=== PATIENT | female | born 1965 | race Caucasian/White ===

== ENCOUNTER 2018-07-27 20:24 | Emergency (ER) | payer MEDICAID ==
[~2018-07-27] VITALS: Ht 152.4 cm; Wt 56.8 kg
[2018-07-27 20:28] VITALS: Ht 152.4 cm; Wt 56.8 kg
--- NOTE | 2018-07-28 00:25 | ERD ---
ER Documentation Chief Complaint Chief Complaint pt reports Lump in LLQ x 2 days HPI This is a 53-year-old female with no significant past medical history who is presenting with several months of intermittent waxing and waning sharp aching colicky left lower quadrant abdominal pain and a reported intermittent mass. The patient reports when the pain is severe, she feels a mass in the left lower quadrant that has been progressively getting larger over the last several months. She was evaluated previously with a reassuring work-up and told to follow-up with a adhesion tester, but she has not followed up since her previous evaluation. The patient reports that the pain currently has improved, but it does still hurt to press on it. She does endorse occasional nausea but no vomiting. She denies constipation or diarrhea. She has not had any black or bloody or tarry stools. She denies dysuria or hematuria or urgency or frequency. The patient does not feel sick. She has not had any fever or chills. The patient denies feeling sick recently. The patient denies fever or chills. The patient has had no headache or vision changes. The patient does not endorse neck or back pain. The patient denies lightheadedness or dizziness. The patient has had no chest pain or trouble breathing. The patient has had no focal deficits. The patient has had no weakness or numbness or tingling to the face or extremities. ROS All systems reviewed and are negative except as per history of present illness. Medications Home Meds Reported Medications Naproxen* (Aleve*) 220 Mg Capsule, 440 MG PO BID, #60 CAP 07/28/18 Allergies Allergies: Coded Allergies: No Known Allergy (Unverified , 07/27/18) PMhx/Soc Medical and Surgical Hx: pt denies Medical Hx, pt denies Surgical Hx History of Surgery: No Hx Neurological Disorder: No Hx Respiratory Disorders: No Hx Cardiac Disorders: No Hx Psychiatric Problems: No Hx Miscellaneous Medical Probl: No Hx Alcohol Use: No Hx Substance Use: No Hx Tobacco Use: No Smoking Status: Never smoker FmHx Family History: No diabetes Physical Exam Vitals Vital Signs Date Temp Pulse Resp B/P (MAP) Pulse Ox O2 O2 Flow FiO2 Time Delivery Rate 07/28/18 55 14 100/55 100 Room Air 01:53 (70) 07/27/18 97.6 83 16 182/79 97 20:28 (113) Physical Exam Const: No apparent distress, well-developed, well-nourished Head: Normocephalic, Atraumatic Eyes: Normal Conjunctiva. Extraocular movements intact. Pupils equal, round and reactive to light ENT: Normal External Ears, Nose and Mouth. Neck: Full range of motion. No meningismus. Resp: Clear to auscultation bilaterally, No wheezes, rales or rhonchi Cardio: Regular rate and rhythm. No murmurs, rubs or gallops Abd: Soft, non distended. Left lower quadrant tenderness to palpation. No guarding or rebound. Normal bowel sounds Skin: No petechiae or rashes Back: No midline tenderness. No CVA tenderness Ext: No cyanosis, or edema Neur: Awake and alert, oriented 4. Cranial nerves intact. No facial droop. Normal strength, sensation and coordination. Psych: Normal Mood and Affect Result Diagram: 07/27/18 2347 07/27/187 Results 24 hrs Laboratory Tests Test 07/27/18 23:40 07/27/18 23:45 07/27/18 23:47 Urine Color RED Urine Clarity SLIGHTLY CLOUDY Urine pH 7.0 Urine Specific Force 1.005 Urine Ketones NEGATIVE mg/dL Urine Nitrite NEGATIVE mg/dL Urine Bilirubin NEGATIVE mg/dL Urine Urobilinogen NEGATIVE mg/dL Urine Leukocyte Esterase TRACE Serena/ul Urine Microscopic RBC 1 /HPF Urine Microscopic WBC 4 /HPF Urine Squamous Epithelial Cells FEW /HPF Urine Bacteria FEW /HPF Urine Hemoglobin NEGATIVE mg/dL Urine Glucose NEGATIVE mg/dL Urine Total Protein NEGATIVE mg/dl POC Beta HCG, Qualitative NEGATIVE White Blood Count 9.1 10^3/ul Red Blood Count 4.11 10^6/ul Hemoglobin 12.1 g/dl Hematocrit 37.0 % Mean Corpuscular Volume 90.0 fl Mean Corpuscular Hemoglobin 29.4 pg Mean Corpuscular 32.7 g/dl Hemoglobin Concent Red Cell Distribution Width 13.0 % Platelet Count 225 10^3/UL Mean Platelet Volume 11.9 fl Immature Granulocytes % 0.200 % Neutrophils % 62.4 % Lymphocytes % 28.2 % Monocytes % 6.4 % Eosinophils % 2.5 % Basophils % 0.3 % Nucleated Red Blood Cells % 0.0 /100WBC Immature Granulocytes # 0.020 10^3/ul Neutrophils # 5.7 10^3/ul Lymphocytes # 2.6 10^3/ul Monocytes # 0.6 10^3/ul Eosinophils # 0.2 10^3/ul Basophils # 0.0 10^3/ul Nucleated Red Blood Cells # 0.0 10^3/ul Sodium Level 142 mmol/L Potassium Level 4.0 mmol/L Chloride Level 109 mmol/L Carbon Dioxide Level 24 mmol/L Anion Gap 9 Blood Urea Nitrogen 11 mg/dl Creatinine 0.62 mg/dl Est Glomerular Filtrat > 60 mL/min Rate mL/min Glucose Level 110 mg/dl Calcium Level 10.6 mg/dl Total Bilirubin 0.2 mg/dl Direct Bilirubin 0.00 mg/dl Indirect Bilirubin 0.2 mg/dl Aspartate Amino 24 IU/L Transf (AST/SGOT) Alanine 15 IU/L Aminotransferase (ALT/SGPT) Alkaline Phosphatase 104 IU/L Total Protein 7.4 g/dl Albumin 4.2 g/dl Globulin 3.20 g/dl Albumin/Globulin Ratio 1.31 Lipase 81 U/L Procedures/MDM MDM The patient's presentation warrants further investigation. Previous medical records, if available, were reviewed. LABS The patient's laboratory testing was obtained and reviewed. No emergent treatment was required unless described below. CBC: No E/o systemic infection or severe anemia or thrombocytopenia Chemistry: No E/o severe acidosis or alkalosis or renal failure or liver disease or diabetic ketoacidosis Lipase: No E/o pancreatitis Urine: No E/o acute infection or hematuria HCG: Negative IMAGING Imaging and Radiology interpretation reviewed. CT Abd/Pelvis FINDINGS: Please note that evaluation of the solid and hollow viscera is limited by lack of IV contrast. Lower thorax: Unremarkable. Liver: Unremarkable. Biliary: There is a large stone in the gallbladder neck, measuring 2.1 cm. Pancreas: Unremarkable. Spleen: Unremarkable. Adrenals: Unremarkable. Kidneys: No retained stone is identified. No hydronephrosis. Bowel: No evidence of obstruction. The appendix is normal. No wall thickening. Pelvic organs: Large mass isodense to the uterus is seen abutting the uterine dome, measuring 11.2 cm cc by 12.1 cm transverse by 8.4 cm AP. The uterus itself is bulbous in morphology, with heterogeneous central internal hypodensity, measuring 3.8 cm in thickness. The left ovary is not clearly visualized. Peritoneum: There is mild free fluid in the pelvis as well as along the inferior left lateral aspect of the pelvic mass discussed above. No free air. Lymph Nodes: No pathologic adenopathy identified. Vessels: Unremarkable. Bones and remaining soft tissues: Round hypodense focus within the right iliacus muscle, measuring 2.2 cm AP by 1.7 cm transverse by 5.7 cm cc. No acute bony abnormality identified. IMPRESSION: Large lower abdominal mass abutting the uterine dome, measuring up to 12.1 cm, with adjacent free fluid. Findings likely represent a large exophytic fibroid. However, the left ovary is not visualized and therefore an ovarian tumor is not excluded. Bulbous morphology to the uterus with possible thickened endometrium or retained blood products in the endometrial canal, measuring 3.8 cm in thickness. Recommend pelvic ultrasound to further evaluate the above findings. Large retained stone in the gallbladder neck, measuring 2.1 cm. Likely complex fluid collection within the right iliacus muscle, which is nonspecific, possibly a proteinaceous cyst or resolving hematoma. Electronically viewed and signed by Physician Thea on 07/28/2018 01:29 US Pelvis FINDINGS: UTERUS: Measures 14.0 x 7.2 x 8.0 cm with 5.6 x 5.3 cm presumed leiomyoma within the fundus/anterior body. 12.0 x 11.4 cm heterogeneous lesion is again seen along the left superior margin of the uterus and left adnexa. ENDOMETRIAL STRIPE: Not well seen. RIGHT OVARY: Measures 4.9 x 2.1 x 3.4 cm without appreciated abnormality. Vascular flow is demonstrated. LEFT OVARY: Not identified. FREE FLUID: None. IMPRESSION: 1. Leiomyomatous uterus with presumed 12.0 x 11.4 cm leiomyoma along the left superior margin of the uterus as noted previously on the CT scan although the left ovary is not definitively seen. 2. Correlation with prior imaging or follow-up pelvic MRI is suggested for confirmation given the lack of visualization of the left ovary to exclude adnexal mass. Electronically viewed and signed by Physician Gilmer on 07/28/2018 03:58 TREATMENT/DISPOSITION The patient presents with left lower quadrant abdominal pain. A hernia versus mass versus diverticulosis/diverticulitis were all possibilities. The patient's imaging studies revealed a large uterine fibroid, which is likely the etiology of her symptoms. The patient will require gynecologic follow-up in an o utpatient setting. There is no evidence of a hernia or diverticulosis or diverticulitis. The patient does not have any evidence of peritonitis. The patient does not have clinical symptoms concerning for mesenteric ischemia or ischemic colitis. The patient does not have right upper quadrant tenderness, and I have low suspicion for gallstones, cholecystitis or biliary colic. The patient does not have any epigastric pain. I have low suspicion for gastritis, PUD or GERD. The patient does not have left upper quadrant tenderness. I have low suspicion for pancreatitis. The patient does not have any right lower quadrant tenderness, or periumbilical tenderness. I have low suspicion for appendicitis. The patient does not have suprapubic tenderness. I have decreased suspicion for cystitis. The patient does not have any flank tenderness. The patient does not have gross hematuria. I have decreased suspicion for nephrolithiasis or renal colic. The patient does not have any palpable pulsatile mass or severe abdominal pain radiating to the back. I have low suspicion for aortic aneurysm, dissection or rupture. DISCHARGE Upon reevaluation of the patient, symptoms have improved. No emergent diagnoses were identified. At this time, I feel that the patient stable for discharge. The patient was instructed to follow-up with a primary care physician in 1-3 days. The patient understands the need to follow-up with gynecology as well. The patient will be given strict precautions with which to return to the emergency department. Prescriptions: None The patient's blood pressure was elevated at greater than 120/80 while in the emergency department. The patient was otherwise stable with no evidence of hypertensive urgency or emergency. The patient does not require admission for blood pressure control. I have discussed with the patient the risks of hypertension. I have instructed the patient to return to the ER for any new or worsening symptoms including chest pain, shortness of breath, headache, blurred vision, confusion, nausea, vomiting or LOC. I have advised the patient to follow up with the primary care physician for outpatient monitoring and treatment for hypertension in 1-3 days. Disclaimer: Inadvertent spelling and grammatical errors are likely due to EHR/dictation software use and do not reflect on the overall quality of patient care. Note that the electronic time recorded on this note does not necessarily reflect the actual time of the patient encounter. Departure Diagnosis: Primary Impression: Uterine fibroid Uterine leiomyoma location: unspecified location Qualified Codes: D25.9 - Leiomyoma of uterus, unspecified Additional Impressions: Pelvic mass Intermittent left lower quadrant abdominal pain Condition: Stable Patient Instructions: Abdominal Pain, Uterine Fibroids Additional Instructions: Thank you for for coming to [facility] for your care today. Please ask your nurse or provider if you have questions about your care today and do not leave until all your questions have been answered. Please use any medications given as directed and follow-up with your doctor (or the doctor you were referred to) in the next 1-3 days. If you do not have a primary care doctor you may follow up at the [facility] or [facility] (listed below). You may also use motrin and tylenol as needed for fever and/or pain unless instructed otherwise by your provider or nurse. Indications for more urgent follow-up have been discussed, but you may return to the Emergency Department at ANY time for any worrisome or worsening symptoms. If you have abdominal pain, please know that no test or exam you received is perfect and you should follow up within 8 hours for continued pain. If you had any imaging studies today, such as an X-Ray or CT Scan, these studies will be reviewed later by a radiologist. You will be called if there are impo rtant findings that were not identified today, so make sure the contact information you provided at registration is correct. If you received any narcotic pain control medicine today, such as Vicodin, Morphine or Dilaudid, your coordination and judgment may be affected for a number of hours. Please do not drive or operate heavy machinery, and you may want someone to assist you at home. If you were given a prescription for narcotic medication, be aware that it is very addictive- use sparingly and only if necessary. PLEASE SEEK FURTHER EVALUATION AND MANAGEMENT AT YOUR DOCTORS OFFICE WITHIN THE NEXT 1-3 DAYS. IT IS YOUR RESPONSIBILITY TO MAKE AN APPOINTMENT FOR FOLOW-UP CARE. IF YOU HAVE A PRIMARY DOCTOR, PLEASE CALL THEIR OFFICE TO SCHEDULE AN APPOINTMENT FOR FOLLOW UP. IF YOU DO NOT HAVE A PRIMARY DOCTOR YOU CAN CALL OUR PHYSICIAN REFERRAL HOTLINE AT IF YOU CAN NOT AFFORD TO SEE A PHYSICIAN YOU CAN CHOSE FROM THE FOLLOWING [facility] CLINICS: [facility] [id number] [facility]. [facility] [address] [facility] [facility] [address] [facility] [address] [facility] [address] [facility]. [facility]. [address] ANKIT MURPHY MD Jul 28, 2018 00:25
[2018-07-28] MEDS ORDERED: NAPR220C2 PO (02:00)
[2018-07-28 05:03] VITALS: BP 127/65; PULSE 63; RESP 16
== END 2018-07-28 05:04 | disposition home or self-care (01) ==
LOC: E/R 20:24
DX: D25.9 Leiomyoma of uterus, unspecified (principal); R19.00 Intra-abdominal and pelvic swelling, mass and lump, unspecified site; R10.2 Pelvic and perineal pain
CPT/HCPCS: 36415; 74176; 76830; 76856; 80053; 81001; 81025; 83690; 85025; Z7502